=== PATIENT | female | born 1990 | race Caucasian/White ===

== ENCOUNTER 2016-07-26 15:22 | Emergency (ER) | payer OTHER ==
[~2016-07-26] VITALS: Wt 68.0 kg
[~2016-07-26 15:22] MED LIST: AMOXIL500 MG PO; AUGMENTIN 875875 MG PO; BACTRIM DS 8001 TA1 PO; BIAXIN500 MG PO; CIPRO500 MG PO; CLARITIN10 MG PO; DIFLUCAN150 MG PO; FIORICET 325 MG1 TAB PO; FLAGYL500 MG PO; FLONASE ALLERG9.9 ML NAS; HYDROCODONE BIT1 T11 PO; IBU-8800 MG PO; MACROBID100 M1 PO; MEDROL DOSEPAK4 MG PO; MOTRIN400 MG PO; MULTIVITAMIN1 TA1 PO; Motrin,Rufen800 MG PO; NIX COMPLET324.86 ML MC; PREDNISONE10 MG PO; SALETO800 MG; ULTRAM50 MG; ZITHROMAX Z-PA250 MG PO; ZOFRAN ODT4 MG SL
[2016-07-26 15:42] LABS: BILIRUBIN NEGATIVE (NEGATIVE); BLOOD TRACE-INTACT (NEGATIVE); CLARITY CLEAR (CLEAR); COLOR YELLOW (YELLOW); GLUCOSE NEGATIVE (NEGATIVE); KETONE NEGATIVE (NEGATIVE); LEUKO ESTERASE NEGATIVE (NEGATIVE); NITRITE NEGATIVE (NEGATIVE); PROTEIN NEGATIVE (NEGATIVE); SPECIFIC GRAVITY 1.015 (1.005-1.030); UROBILINOGEN 0.2 E.U./dl (0.2-1.0)
[2016-07-26 16:13] LABS: BACTERIA 2+; RBC 0-2 rbc/hpf (0-2); URINE REFLEX COMMENT YES (NO)
== END 2016-07-26 16:27 | disposition home or self-care (01) ==
LOC: ED 15:22
PROVIDERS: Physician Assistant
DX: O23.41 Unspecified infection of urinary tract in pregnancy, first trimester (principal); R30.0 Dysuria; Z3A.08 8 weeks gestation of pregnancy

== ENCOUNTER 2016-10-02 18:22 | Emergency (ER) | payer OTHER ==
[~2016-10-02] VITALS: Ht 162.5 cm; Wt 77.1 kg
[2016-10-02 18:53] LABS: BASO % 0.4 % (0.0-1.0); EOS # 0.1 10*3/uL (0.0-0.4); HEMATOCRIT 38.4 % (37.0-47.0); HEMOGLOBIN 12.5 g/dl (12.0-16.0); LYMPH # 1.2 10*3/uL (1.3-4.4); LYMPH % 23.1 % (27.0-41.0); MEAN CELL VOLUME 90.1 fl (81.0-99.0); MEAN CORPUSCULAR HGB 29.3 pg (27.0-31.0); MEAN CORPUSCULAR HGB CONC 32.6 g/dl (33.0-37.0); MONO # 0.3 10*3/uL (0.1-1.0); MONO % 6.6 % (3.0-9.0); NEUT # 3.4 10*3/uL (2.3-7.9); NEUT % 67.7 % (47.0-73.0); PLATELET COUNT AUTOMATED 223 10*3/uL (130-400); RED BLOOD COUNT 4.26 10*6/uL (4.10-5.10); RED CELL DISTRI WIDTH 13.4 % (0-14.5)
[2016-10-02 19:04] LABS: INTERNATIONAL NORM RATIO 0.9 (2.0-3.5)
[2016-10-02 19:10] LABS: ALBUMIN 3.6 gm/dl (3.1-4.5); ALKALINE PHOSPHATASE 73 U/L (45-117); BILIRUBIN, TOTAL 0.2 mg/dl (0.2-1.0); BUN 12 mg/dl (7-24); CARBON DIOXIDE 32 mmol/L (21-32); CHLORIDE 101 mmol/L (98-107); CPK 71 U/L (26-192); EST GLOM FILT AFRICAN AMERICAN > 60 ml/min; GLUCOSE 110 mg/dL (65-99); POTASSIUM 4.1 mmol/L (3.5-5.1); SGOT/AST 17 IU/L (3-35); SGPT/ALT 25 U/L (12-78); SODIUM 140 mmol/L (136-145); TOTAL PROTEIN 7.5 gm/dL (6.4-8.2)
[2016-10-02 19:11] LABS: CKMB 0.7 ng/ml (0.5-3.6); TROPONIN I < 0.015 ng/ml (<0.045)
[2016-10-02 19:17] LABS: THYROID STIM HORMONE (HS) 0.573 uIU/ml (0.358-4.75)
== END 2016-10-02 20:38 | disposition home or self-care (01) ==
LOC: ED 18:22
PROVIDERS: Registered Nurse
DX: R00.2 Palpitations (principal); R51 Headache; K08.89 Other specified disorders of teeth and supporting structures

== ENCOUNTER 2019-11-19 13:11 | Emergency (ER) | payer OTHER ==
[2019-11-19 14:43] LABS: URINE AMPHETAMINES < 1000 (1000ng/ml); URINE BARBITURATES < 200 (200ng/ml); URINE BENZODIAZEPINES > 200 (200ng/ml); URINE CANNABINOIDS (THC) < 50 (50ng/ml); URINE COCAINE < 300 (300ng/ml); URINE METHADONE < 300 (300ng/ml); URINE OPIATES < 300 (300ng/ml)
[2019-11-19 14:46] LABS: URINE PHENCYCLIDINE < 25 (25ng/ml)
[2019-11-19] MEDS ORDERED: ATIVAN0.5 MG PO (14:52)
[2019-11-19 14:54] LABS: BILIRUBIN NEGATIVE (NEGATIVE); CLARITY CLOUDY (CLEAR); COLOR YELLOW (YELLOW); GLUCOSE NEGATIVE (NEGATIVE); KETONE NEGATIVE (NEGATIVE)
[2019-11-19 14:55] LABS: BLOOD 2+ (NEGATIVE); LEUKO ESTERASE 3+ (NEGATIVE); NITRITE NEGATIVE (NEGATIVE); SPECIFIC GRAVITY 1.015 (1.005-1.030); UROBILINOGEN 0.2 E.U./dl (0.2-1.0)
[2019-11-19 15:00] LABS: BACTERIA 2+; EPITHELIAL CELLS TNTC; WBC TNTC wbc/hpf (0-5)
[2019-11-19] MEDS ORDERED: CEFUROXIME AXE500 MG PO (15:01)
== END 2019-11-19 15:02 | disposition home or self-care (01) ==
LOC: ED 13:11
PROVIDERS: Nurse Practitioner Family
DX: N39.0 Urinary tract infection, site not specified (principal); Z76.0 Encounter for issue of repeat prescription; I10 Essential (primary) hypertension; F41.9 Anxiety disorder, unspecified